=== PATIENT | male | born 1980 | race Caucasian/White ===

== ENCOUNTER → 2018-03-09 | Outpatient (CLI) | payer BC ==
--- NOTE | 2018-03-09 12:06 | USB ---
Reason for exam: clinical finding. Indicated problem(s): palpable abnormality in the left breast. Physical Findings: Nurse Summary: 0.25cm firm superficial nodule (nurse dw). US Breast LT Left limited breast ultrasound including focal area of concern, retroareolar and axilla demonstrates a 0.5 x 0.5 x 0.5cm oval, cystic lesion at posterior nipple. Dermal/subdermal location. Suspect sebaceous cyst or other benign dermal lesion. These results were verbally communicated with the patient and result sheet given to the patient on 03/09/18. ASSESSMENT: Probably benign, BI-RAD 3 RECOMMENDATION: Ultrasound of the left breast in 3 months. (if does not resolve)
== END ==
LOC: RADUSWWP 10:06
PROVIDERS: ATTEND Family Medicine
DX: N63.20 Unspecified lump in the left breast, unspecified quadrant (principal)